=== PATIENT | female | born 1945 | race Caucasian/White ===

== ENCOUNTER 2017-04-19 10:09 | Outpatient (CLI) | payer MEDICARE ==
--- NOTE | 2017-04-20 18:08 | Mammography Report ---
DIGITAL SCREENING MAMMOGRAM: 04/19/2017 CLINICAL INDICATION: A 71-year-old for screening. COMPARISON: 09/2015, 01/2014, 01/2013, 01/2012, 01/2011. TECHNIQUE: Routine CC and MLO projections were obtained of the breasts. FINDINGS: The breasts demonstrate heterogeneously dense fibroglandular parenchyma bilaterally. Coar se, typically benign calcifications are present. There is a shifting pattern of circumscribed nodule s, compatible with waxing and waning cysts. No suspicious masses, clustered microcalcifications, or regions of architectural distortion are identified. IMPRESSION: BENIGN FINDINGS. RECOMMENDATION: Routine annual screening unless otherwise clinically indicated. BI-RADS category 2, benign findings. STANDARD QUALIFYING STATEMENTS 1. This examination was reviewed with the aid of Computer-Aided Detection (CAD). 2. A negative or benign imaging report should not delay biopsy if clinically suspicious findings are present. Consider surgical consultation if warranted. More than 5% of cancers are not identified by i maging. 3. Dense breasts may obscure an underlying neoplasm. JOB #: [id number] EXT JOB #:[id number]
== END 2017-04-19 10:10 | disposition home or self-care (01) ==
LOC: DI.S 10:09
PROVIDERS: ATTEND Nurse Practitioner Family
DX: Z12.31 Encounter for screening mammogram for malignant neoplasm of breast (principal)
CPT/HCPCS: 77067

== ENCOUNTER 2017-06-07 13:29 | Outpatient (CLI) | payer MEDICARE | END 2017-06-07 13:30 | disposition home or self-care (01) | LOC: SC 13:29 | PROVIDERS: ATTEND Nurse Practitioner Family | DX: G47.33 Obstructive sleep apnea (adult) (pediatric) (principal) | CPT/HCPCS: 99214; G0463; 99212 ==

== ENCOUNTER 2017-07-05 12:08 | Outpatient (CLI) | payer MEDICARE ==
--- NOTE | 2017-07-05 15:21 | XRAY Report ---
TWO-VIEW CHEST: 07/05/2017 CLINICAL INDICATION: Dyspnea. FINDINGS: Frontal and lateral views of the chest demonstrate a normal cardiac silhouette. The lungs are clear. No effusion or pneumothorax. There has been no significant interval change from 012. IMPRESSION: NO EVIDENCE OF ACUTE CARDIOPULMONARY DISEASE. JOB #: [id number] EXT JOB #:[id number]
== END 2017-07-05 12:09 | disposition home or self-care (01) ==
LOC: DI.S 12:08
PROVIDERS: ATTEND Registered Nurse
DX: R06.00 Dyspnea, unspecified (principal); R07.89 Other chest pain; R53.83 Other fatigue
CPT/HCPCS: 71020

== ENCOUNTER 2017-08-09 10:39 | Outpatient (CLI) | payer MEDICARE | END 2017-08-09 10:40 | disposition home or self-care (01) | LOC: SC 10:39 | PROVIDERS: ATTEND Nurse Practitioner Family | DX: G47.33 Obstructive sleep apnea (adult) (pediatric) (principal) | CPT/HCPCS: 99214; G0463; 99212 ==

== ENCOUNTER 2017-08-12 13:19 | Outpatient (CLI) | payer MEDICARE ==
--- NOTE | 2017-08-12 15:46 | CARDIAC PROCEDURE NOTE ---
DATE OF SERVICE: 08/12/2017 00:00:00 PRIMARY CARE PHYSICIAN: KAYLI Duong PROCEDURE: Cardiac treadmill stress test. REASON FOR PROCEDURE: Chest pain and dyspnea. CARDIAC RISK FACTORS: Include age, hypertension, former smoker. PREVIOUS CARDIAC PROCEDURES: Include stress test 15 or 20 years ago. CLINICAL HISTORY: A 72-year-old female without known coronary artery disease. INITIAL RESTING VITAL SIGNS: Blood pressure 124/68, heart rate 76, height 61 inches, weight 143 pound s, BMI 26.4. PROCEDURE AND FINDINGS: The patient's identity and date verified. Consent signed. The patient p erformed treadmill exercise using a Dami protocol completing 8 minutes 58 seconds and completing an estimated workload of 10.1 metabolic equivalents. Predicted exercise time was 5 minutes 30 seconds. M aximal blood pressure was 174/66 with a heart rate of 150 beats per minute or 100% of maximum predict ed heart rate for age. The blood pressure response to exercise was within normal limits. The patient stopped because her legs were tiring, and she achieved 100% of predicted heart rate. The resting ECG demonstrated normal sinus rhythm with no abnormality. Maximum ST segment depression was less than 0.5 mm and horizontal. There was a rare PVC. The 1 minute heart rate recovery was within normal limits. FINAL IMPRESSION 1. Negative stress electrocardiogram for ischemia by electrocardiographic criteria. 2. Negative stress test clinically for angina. 3. Rare premature ventricular contraction. 4. [place] [employer] Association functional class I. JOB #: [id number] EXT JOB #:[id number]
[2017-08-12 16:18] VITALS: BP 124/68
== END 2017-08-12 13:20 | disposition home or self-care (01) ==
LOC: DI 13:19
PROVIDERS: ATTEND Registered Nurse
DX: R06.00 Dyspnea, unspecified (principal); R07.89 Other chest pain; I10 Essential (primary) hypertension; Z87.891 Personal history of nicotine dependence
CPT/HCPCS: 93017

== ENCOUNTER 2018-02-22 08:15 | Outpatient (CLI) | payer MEDICARE | END 2018-02-22 08:16 | disposition home or self-care (01) | LOC: DI 08:15 | PROVIDERS: ATTEND Registered Nurse | DX: R06.00 Dyspnea, unspecified (principal) | CPT/HCPCS: 93306; 94060 ==

== ENCOUNTER 2018-02-22 09:11 | Outpatient (CLI) | payer MEDICARE ==
[2018-02-22] MEDS ORDERED: ALBUTEROL NEB 2.5 MG/3 ML INH ONE (11:00)
== END 2018-02-22 09:12 | disposition home or self-care (01) ==
LOC: RT 09:11
PROVIDERS: ATTEND Registered Nurse
DX: R06.00 Dyspnea, unspecified (principal)
CPT/HCPCS: 94060

== ENCOUNTER 2018-07-13 10:45 | Outpatient (CLI) | payer MEDICARE | END 2018-07-13 10:46 | disposition home or self-care (01) | LOC: SC 10:45 | PROVIDERS: ATTEND Nurse Practitioner Family | DX: G47.33 Obstructive sleep apnea (adult) (pediatric) (principal) | CPT/HCPCS: 99214; G0463; 99212 ==

== ENCOUNTER 2019-03-10 17:27 | Outpatient (CLI) | payer MEDICARE | END 2019-03-10 17:28 | disposition short-term general hospital (02) | LOC: EMS 17:27 | PROVIDERS: ATTEND Surgery | DX: R50.9 Fever, unspecified (principal); R10.9 Unspecified abdominal pain; R11.0 Nausea; N39.0 Urinary tract infection, site not specified; Z98.818 Other dental procedure status | CPT/HCPCS: A0425; A0427 ==

== ENCOUNTER 2019-08-22 15:36 | Outpatient (CLI) | payer MEDICARE ==
[2019-08-22 17:29] VITALS: BP 122/70
--- NOTE | 2019-08-22 17:29 | SLEEP CARE CONSULTATION ---
Information from patient questionnaire entered by Savanna Menendez. I have reviewed and concur with the information entered by Savanna Menendez. This document represents the service I personally performed and the decisions made by me, Argelia Esteves, RN, MSN, SATELLITE PROJECT SITE MONITOR. History of Present Illness Previous diagnosis: Mild, Obstructive Sleep Apnea-Hypopnea Syndrome AHI: 6.4 Reason for CPAP/BiPAP follow up: annual Equipment obtained from: [employer] Mask style: Nasal pillows HPI additional information: Patient had interrupted use of CPAP while caring for her significant other the past year as waking to care for him. She became ill and then hospitalized with no use for part of March and April. Then went to use it again after he in May and it would not start. 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 denies: drowsiness while driving Initial [place] Sleepiness Scale score: 9 Current [place] Sleepiness Scale score: 1 Allergies and Home Medications Known drug allergies: No Home medication list reviewed: Yes Allergy and home medication list: Lisinopril 20mg tab one twice daily Aspirin 81mg tab one daily Gabapentin 400mg cap three daily at bedtime Temazepam 15mg daily at bedtime prn Vitamin D 1000IU tab one daily Ventolin HFA 108 ( 90 base) mcg/act Two puffs q4hr prn SOB Qvar 80 mcg/act inhalation aerosol Two puffs twice daily Nasal [place] nasal solution One spray each nostril twice prn B 12 Tab one every other day Spiriva REspirmat 2.5mcg daily Review of Systems Review of systems same as previous: No (hospitalized for kidney infection etc. ) Physical Exam Blood Pressure: 122/70 Cuff size: regular Heart Rate: 72 O2 Saturation: 98 Height: 5 ft 3 in Weight: 141 lb 6.4 oz Body Mass Index: 25.0 BMI Classification: Overweight Impression and Plan 1. Obstructive Sleep Apnea-Hypopnea Syndrome, mild, with fair treatment compliance and good apnea control until machine stopped working. On CPAP therapy, the patient has better sleep quality and is more rested overall. 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 She has no difficulties using the m achine until it stopped working. She brought the machine in and it did not start. I put my power cord to her CPAP and it worked. So I ordered a new power cord which will be faxed. Patient instructed to contact [facility] to discuss process and patient to contact this office if any problems. Patient will restart therapy when power cord replaced on current pressure as no significant change in weight. Patient's BMI showed she is slightly overweight. I reviewed with patient how increase in belly weight can increase health risks. Patient advised to lose some weight. Patient's apnea severity and rationale for treatment to reduce apnea, improve sleep quality and reduce cardiovascular and cerebrovascular events was reviewed. I also reviewed the benefit of consistent device use of CPAP for hypertension, COPD. The goal is to use CPAP with all sleep for maximum benefit of treatment. Restart CPAP at same pressure of 9 cmH2O * New power cord * Use CPAP with all sleep * Notify me if snoring with mask or feeling that the pressure is too much or too little * Attempt to lose some weight * Return for follow up in 2 months, or sooner if concerns arise I spent 100% of this 35 minute visit face to face with the patient with greater than 50% of this was spent time counseling the patient and coordination of care and included downloaded more inclusive compliance report showing past year usage.
== END 2019-08-22 15:37 | disposition home or self-care (01) ==
LOC: SC 15:36
PROVIDERS: ATTEND Nurse Practitioner Family
DX: G47.33 Obstructive sleep apnea (adult) (pediatric) (principal)
CPT/HCPCS: 99214; G0463; 99212

== ENCOUNTER 2019-10-06 10:41 | Outpatient (CLI) | payer MEDICARE ==
--- NOTE | 2019-10-09 08:33 | DEXA Report ---
Reason: OSTEOPOROSIS Procedure Date: 10/06/2019 Accession Number: [id number] / [id number] Procedure: DEX - Dexa Spine and/or Hip CPT Code: Final Report FULL RESULT: EXAM: Dexa Spine and/or Hip DATE: 10/06/2019 11:22 AM CLINICAL HISTORY: OSTEOPOROSIS. The patient is a 74-year-old postmenopausal female. TECHNIQUE: Dual energy x-ray absorptiometry (DXA) was performed on a [employer] System. Regions measured are the AP Spine, femoral neck, and if needed forearm. COMPARISON: None available. In accordance with the International Society for Clinical Densitometry (ISCD) guidelines, data from previous exams may be reanalyzed using current recommendations and techniques. This is done to allow a more accurate basis for comparison with the current study. FINDINGS: The data for the lumbar spine is as follows: BMD (g/cm/cm) T-SCORE Z-SCORE REGION L1 0.912 -1.8 -0.1 L2 1.267 0.6 2.3 L3 1.152 -0.4 1.4 L4 1.088 -0.9 0.8 TOTAL 1.108 -0.6 1.2 NOTE: All evaluable vertebrae are used for classification The data for the hip is as follows: BMD (g/cm/cm) T-SCORE Z-SCORE REGION Neck 0.696 -2.5 -0.5 TOTAL 0.829 -1.4 0.3 NOTE: The femoral neck or total proximal femur, whichever is lowest, is used for classification. IMPRESSION: THE WHO CLASSIFICATION BASED ON THE INTERNATIONAL REFERENCE STANDARD IS OSTEOPOROSIS, REFERENCE HIP / NECK. THE FRACTURE RISK IS CONSIDERED TO BE HIGH. RECOMMENDATION: Patients with diagnosis of osteoporosis or osteopenia should have regular bone mineral density assessment. For those eligible for Medicare, routine testing is allowed once every 2 years. Testing frequency can be increased for patients who have rapidly progressing disease or for those who are receiving medical therapy to restore bone mass. COMMENT: World Health Organization (WHO) definitions for osteoporosis and osteopenia: NORMAL BMD: T-score at -1.0 or higher, fracture risk is low OSTEOPENIA BMD: T-score between -1.0 and -2.5, fracture risk is increased. OSTEOPOROSIS BMD: T-score at -2.5 or lower, fracture risk is high. National Osteoporosis Foundation recommends: 1. Obtain adequate dietary calcium (at least 1200 mg per day) and vitamin D (400-800 international units per day). 2. Participate, as appropriate, in regular weightbearing and muscle-strengthening exercise. 3. Avoid tobacco use and reduce alcohol and caffeine intake. 4. For more detailed information see the website at www.NOF.org.
== END 2019-10-06 10:42 | disposition home or self-care (01) ==
LOC: DI 10:41
PROVIDERS: ATTEND Internal Medicine
DX: Z13.820 Encounter for screening for osteoporosis (principal); M81.0 Age-related osteoporosis without current pathological fracture; Z78.0 Asymptomatic menopausal state
CPT/HCPCS: 77080

== ENCOUNTER 2019-10-12 10:46 | Outpatient (CLI) | payer MEDICARE ==
--- NOTE | 2019-10-12 11:47 | SLEEP CARE CONSULTATION ---
Information from patient questionnaire entered by Afua Wang. I have reviewed and concur with the information entered by Afua Wang. This document represents the service I personally performed and the decisions made by me, Argelia Esteves, RN, MSN, CANAL BOAT OPERATOR. History of Present Illness Previous diagnosis: Mild, Obstructive Sleep Apnea-Hypopnea Syndrome AHI: 6.4 Reason for follow up: other (2 month) Equipment type: CPAP Equipment obtained from: [employer] Mask style: Nasal pillows Mask brand: Resmed Backup mask available: Yes Last cushion change: monthly so a few days ago Prior sleep studies: Yes HPI additional information: Restarted CPAP after getting her power cord replaced and feels going well as feels better overall. CPAP Compliance Data - Data Reviewed with Patient Average duration of nightly device use: 7h 24m Compliance rate %: 73 Current pressure setting (cmH2O): 9 Humidity setting: off Average residual AHI: 0.2 Subjective Patient concerns: reports: other (falling asleep without CPAP after using the bathroom ). denies: aerophagia, mask discomfort, air blowing in eyes, mask leak noise, condensation in mask/hose, nasal congestion (but has sinus congestion and has appointment with new car get ready mechanic ), dry mouth, nose, throat, epistaxis Observed to snore while using device: No Current pressure setting perceived as: comfortable On therapy, patient: reports: sleeping better, awakening more refreshed, being more awake and alert during the day, more rested overall. denies: drowsiness while driving Initial [place] Sleepiness Scale score: 8 Current [place] Sleepiness Scale score: 2 Allergies and Home Medications Known drug allergies: Yes (OTC ?) Home medication list reviewed: Yes Allergy and home medication list: Medication Name (generic/name brand) Strength & Dosage HCTZ-Lisinopril 12.5-20mg tab one twice daily Aspirin 81mg tab one daily Gabapentin 400mg cap three daily at bedtime trazadone 1 tab low dose bedtime Vitamin D 1000IU tab one daily Ventolin HFA 108 ( 90 base) mcg/act Two puffs q4hr prn SOB Qvar 80 mcg/act inhalation aerosol Two puffs twice daily Azelastine HCI 0.1% nasal solution One spray each nostril twice prn Vitamin B Complex Tab one daily vitamin C 1000mg daily Review of Systems Review of systems same as previous: No (hurt shoulder after lifting / has appointment to evaluate) Physical Exam Blood Pressure: 150/70 (in pain shoulder pain - after lifting boxes) Cuff size: long Heart Rate: 68 O2 Saturation: 92 Height: 5 ft 1 in Weight: 145 lb 12.8 oz Body Mass Index: 27.5 BMI Classification: Overweight Impression and Plan 1. Obstructive Sleep Apnea-Hypopnea Syndrome, mild, with good treatment compliance and good apnea control. On CPAP therapy, the patient has better sleep quality and is more rested overall. Patient has been using CPAP well since her power cord was replaced. To reduce falling asleep without CPAP after using the bathroom, she is advised to either keep mask on and unhook hose or take mask off and place on pillow. Patient advised of importance to use CPAP with all sleep for maximum benefit of treatment. She has also gained some weight. Patient advised how continued weight gain can increase her apnea and CPAP pressure. She was advised to lose weight. Patient's apnea severity and rationale for treatmen t to reduce apnea, improve sleep quality and reduce cardiovascular and cerebrovascular events was reviewed. I also reviewed the benefit of consistent device use of CPAP for hypertension, restless leg syndrome. * Continue CPAP pressure at 9 cmH2O * Use CPAP with all sleep * Notify me if snoring with mask or feeling that the pressure is too much or too little * Attempt to lose some weight * Return for follow up in 6 months , or sooner if concerns arise I spent 100% of this 30 minute visit face to face with the patient with greater than 50% of this was spent time counseling the patient and coordination of care.
[2019-10-12 11:48] VITALS: BP 150/70
== END 2019-10-12 10:47 | disposition home or self-care (01) ==
LOC: SC 10:46
PROVIDERS: ATTEND Nurse Practitioner Family
DX: G47.33 Obstructive sleep apnea (adult) (pediatric) (principal)
CPT/HCPCS: 99214; G0463; 99212

== ENCOUNTER 2020-03-13 15:35 | Outpatient (CLI) | payer MEDICARE ==
--- NOTE | 2020-03-13 15:21 | SLEEP CARE CONSULTATION ---
Information from patient questionnaire entered by Afua Wang. I have reviewed and concur with the information entered by Afua Wang. This document represents the service I personally performed and the decisions made by me, Argelia Esteves, RN, MSN, POULTRY CLEANER. History of Present Illness Service Date and Time: 03/13/2020 1500 Previous diagnosis: Mild, Obstructive Sleep Apnea-Hypopnea Syndrome AHI: 6.4 Reason for follow up: six month Equipment type: CPAP Equipment obtained from: [facility] (getting supplies as needed) Mask style: Nasal pillows Backup mask available: Yes (old mask) Last cushion change: a few days ago Type of Sleep Study: Polysomnography CPAP Compliance Data - Data Reviewed with Patient Average duration of nightly device use: 7h 41m Compliance rate %: 88 Current pressure setting (cmH2O): 9 Average residual AHI: 0.2 Subjective Patient concerns: reports: nasal congestion (much less with new allergy medications and inhalers ), dry mouth, nose, throat (occasional dry nose and uses AYR as needed. does not use humidity). denies: aerophagia, mask discomfort, air blowing in eyes, mask leak noise, condensation in mask/hose, epistaxis Observed to snore while using device: No Current pressure setting perceived as: comfortable On therapy, patient: reports: sleeping better, awakening more refreshed, being more awake and alert during the day, more rested overall. denies: drowsiness while driving Initial [place] Sleepiness Scale score: 8 Allergies and Home Medications Home medication list reviewed: No (new mediations for allergies ) Review of Systems Review of systems same as previous: Yes Physical Exam Height: 5 ft 1 in Weight: 145 lb Body Mass Index: 27.3 BMI Classification: Overweight Impression and Plan 1. Obstructive Sleep Apnea-Hypopnea Syndrome, mild, with good treatment compliance and good apnea control. On CPAP therapy, the patient has better sleep quality and is more rested overall. Patient is very pleased with benefit of treatment. She has been sleeping better with CPAP since she started her allergy medications. She was also advised she could use salie nasal spray to clean nose of secretions, wash off allergens and reduce any dryness if needed in addtion to [place]. I reviewed how significant weight change can increase or decrease apnea risks and CPAP pressure. She was advised of symptoms to report for CPAP pressure adjustment. Patient's apnea severity and rationale for treatment to reduce apnea, improve sleep quality and reduce hypertension, cardiovascular and cerebrovascular events was reviewed. * Continue CPAP pressure at 9 cmH20 * Notify me if snoring with mask or feeling that the pressure is too much or too little * Attempt to lose some weight * Call this office if any problems using CPAP * Return for follow up in 1 year , or sooner if concerns arise Visit Type: Telehealth Phone (to reduce risk of Covid 19 exposure) Video Type: [employer] Patient Location: Home Location of Provider: Home Patient agrees and consents to this telehealth visit type: Yes Patient agrees to have their insurance billed: Yes Time Spent with Patient (minutes): 10 Provider Statement: I spent 100% of the Telehealth Phone Call with the patient with greater than 50% spent counseling the patient and coordination of care.
== END 2020-03-13 15:36 | disposition home or self-care (01) ==
LOC: SC 15:35
PROVIDERS: ATTEND Nurse Practitioner Family
DX: G47.33 Obstructive sleep apnea (adult) (pediatric) (principal); E66.3 Overweight; Z68.27 Body mass index [BMI] 27.0-27.9, adult

== ENCOUNTER 2020-06-27 14:15 | Outpatient (CLI) | payer MEDICARE ==
--- NOTE | 2020-06-28 08:09 | Mammography Report ---
BILATERAL DIGITAL SCREENING MAMMOGRAM 3D/2D: 06/27/2020 CLINICAL: Routine screening. Comparison is made to exams dated: 05/29/2019 mammogram, 04/19/2017 mammogram, 09/27/2015 mammogram, mammogram, 02/02/2013 mammogram, and 02/03/2012 mammogram - [facility]. The re are scattered fibroglandular elements in both breasts. There are benign calcifications in both breasts. No significant masses, calcifications, or other findings are seen in either breast. There has been no significant interval change. IMPRESSION: BENIGN There is no mammographic evidence of malignancy. A 1 year screening mammogram is recommended. This exam was interpreted at Station ID: [id number]. NOTE: For mammograms, a report in lay terms will be sent to the patient. Approximately 15% of breast malignancies will not be visualized mammographically. In the management of a palpable breast mass, a negative mammogram must not discourage biopsy of a clinically suspicious lesion. Electronically Signed By: Julieta daniel/juan manuel:06/27/2020 16:27:42 ACR BI-RADS Category 2: Benign Finding(s) 3342F PARENCHYMAL PATTERN: (A) - The breast(s) demonstrate(s) scattered fibroglandular densities. BI-RADS CATEGORY: (2) - 2 RECOMMENDATION: (ANNUAL) - Recommend routine annual screening mammography. [id number] 1 year screening LATERALITY: (B)
== END 2020-06-27 14:16 | disposition home or self-care (01) ==
LOC: DI 14:15
DX: Z12.31 Encounter for screening mammogram for malignant neoplasm of breast (principal)
CPT/HCPCS: 77063; 77067

== ENCOUNTER 2021-04-22 13:47 | Outpatient (CLI) | payer MEDICARE ==
--- NOTE | 2021-04-22 14:31 | SLEEP CARE CONSULTATION ---
Information from patient questionnaire entered by Savanna Nguyen. I have reviewed and concur with the information entered by Savanna Nguyen. This document represents the service I personally performed and the decisions made by , Tara Morton ARNP. History of Present Illness Service Date and Time: 04/22/2021 1347 Previous diagnosis: Mild, Obstructive Sleep Apnea-Hypopnea Syndrome AHI: 6.4 (in 2014) Reason for follow up: annual (last seen 03/2020) Equipment type: CPAP Equipment obtained from: [employer] (getting supplies as needed) Mask style: Nasal pillows Backup mask available: Yes (old mask) Last cushion change: 1 month Prior sleep studies: Yes Year and Where: 2014 - [facility] Type of Sleep Study: Polysomnography HPI additional information: JANNETTE NGUYEN was diagnosed to have mild, AHI 6.4, obstructive sleep apnea- hypopnea syndrome and returned today for CPAP therapy annual follow-up. CPAP Compliance Data - Data Reviewed with Patient Average duration of nightly device use: 5 hr 37 min Compliance rate %: 68 (180 days)(72 last 30 days) Current pressure setting (cmH2O): 9 Humidity settin Average residual AHI: 0.2 Subjective Missed days of use due to: reports: other Patient concerns: denies: aerophagia, mask discomfort, air blowing in eyes, mask leak noise, condensation in mask/hose, nasal congestion, dry mouth, nose, throat, epistaxis, other Observed to snore while using device: No Current pressure setting perceived as: comfortable On therapy, patient: reports: sleeping better, awakening more refreshed, being more awake and alert during the day, more rested overall. denies: drowsiness while driving Initial [place] Sleepiness Scale score: 8 (in 2014) Current [place] Sleepiness Scale score: 0 Allergies and Home Medications Home medication list reviewed: Yes (no new meds) Review of Systems Review of systems same as previous: Yes (no changes) Physical Exam Heart Rate: 76 O2 Saturation: 98 Height: 5 ft 1 in Weight: 148 lb Body Mass Index: 27.9 BMI Classification: Overweight Impression and Plan 1. Obstructive Sleep Apnea-Hypopnea Syndrome, mild, with good treatment compliance and good apnea control. On CPAP therapy, the patient has better sleep quality and is more rested overall. Patient is satisfied with her treatment and is trying to add more hours to the time she spends with the mask on. She has reached good compliance today but I encouraged her to continue to use the CPAP with all sleep. Compliance guidelines reviewed for insurance coverage. Patient was counseled on the difference between meeting compliance and optimal use of CPAP. Optimal use of CPAP is use of CPAP with all sleep to obtain maximum benefit of treatment. Patient is encouraged to use CPAP with all sleep. Patient also encouraged to try to lose weight. Patient's apnea severity and rationale for treatment to reduce apnea, improve sleep quality and reduce cardiovascular and cerebrovascular events was reviewed. I also reviewed the benefit of consistent device use of CPAP for hypertension. * Continue auto CPAP pressure at 9 cmH2O * Notify me if snoring with mask or feeling that the pressure is too much or too little * Attempt to lose weight * Call this office if any problems using CPAP * Return for follow up in 1 year, or sooner if concerns arise Counseling Topics: Spare mask, Weight loss health impact Visit Type: In Office Time Spent with Patient (minutes): 18 Provider Statement: I spent 100% of the Face to Face Visit with the patient with greater than 50% spent counseling the patient and coordination of care.
== END 2021-04-22 13:48 | disposition home or self-care (01) ==
LOC: SC 13:47
PROVIDERS: ATTEND Nurse Practitioner Family
DX: G47.33 Obstructive sleep apnea (adult) (pediatric) (principal); E66.3 Overweight; Z68.27 Body mass index [BMI] 27.0-27.9, adult
CPT/HCPCS: 99212; G0463

== ENCOUNTER 2021-05-01 08:00 | Outpatient (CLI) | payer MEDICARE ==
[2021-05-01 16:20] LABS: BILIRUBIN,URINE NEGATIVE (NEGATIVE); GLUCOSE, URINE (UA) NEGATIVE (NEGATIVE); KETONES,URINE (UA) NEGATIVE (NEGATIVE); LEUKOCYTE ESTERASE, URINE LARGE (NEGATIVE); NITRITE,URINE NEGATIVE (NEGATIVE); OCCULT BLOOD,URINE TRACE-INTA (NEGATIVE); PH,URINE 6.5 PH (5.0-7.5); PROTEIN,URINE NEGATIVE (NEGATIVE); UROBILINOGEN,URINE 0.2 (NORMAL) E.U./dL (NORMAL)
[2021-05-01 16:22] LABS: CLARITY,URINE HAZY (CLEAR)
[2021-05-01 16:45] LABS: BACTERIA,URINE Few /HPF (None Seen); RBC,URINE 0-5 /HPF (0-5); SQUAMOUS EPITHELIAL CELL,UR FEW Squamous (<= Few); WBC,URINE >25 /HPF (0-5)
== END 2021-05-01 23:59 | disposition home or self-care (01) ==
LOC: LAB.S 08:00
PROVIDERS: ATTEND Emergency Medicine
DX: R30.0 Dysuria (principal)
CPT/HCPCS: 81001; 87086; 87181

== ENCOUNTER 2021-05-16 09:17 | Outpatient (CLI) | payer MEDICARE ==
[2021-05-16 14:45] LABS: BILIRUBIN,URINE NEGATIVE (NEGATIVE); GLUCOSE, URINE (UA) NEGATIVE (NEGATIVE); KETONES,URINE (UA) NEGATIVE (NEGATIVE); LEUKOCYTE ESTERASE, URINE NEGATIVE (NEGATIVE); NITRITE,URINE NEGATIVE (NEGATIVE); OCCULT BLOOD,URINE NEGATIVE (NEGATIVE); PH,URINE 7.5 PH (5.0-7.5); PROTEIN,URINE NEGATIVE (NEGATIVE); UROBILINOGEN,URINE 0.2 (NORMAL) E.U./dL (NORMAL)
[2021-05-16 14:58] LABS: CLARITY,URINE CLEAR (CLEAR)
[2021-05-16 14:59] LABS: BACTERIA,URINE Rare /HPF (None Seen); RBC,URINE None Seen /HPF (0-5); SQUAMOUS EPITHELIAL CELL,UR NONE SEEN (<= Few); WBC,URINE 0-3 /HPF (0-5)
== END 2021-05-16 09:18 | disposition home or self-care (01) ==
LOC: LAB.S 09:17
PROVIDERS: ATTEND Emergency Medicine
DX: R30.0 Dysuria (principal)
CPT/HCPCS: 81001; 87086

== ENCOUNTER 2021-05-29 08:00 | Outpatient (CLI) | payer MEDICARE ==
[2021-05-29 20:01] LABS: BILIRUBIN,URINE NEGATIVE (NEGATIVE); GLUCOSE, URINE (UA) NEGATIVE (NEGATIVE); KETONES,URINE (UA) TRACE mg/dL (NEGATIVE); LEUKOCYTE ESTERASE, URINE MODERATE (NEGATIVE); NITRITE,URINE POSITIVE (NEGATIVE); OCCULT BLOOD,URINE NEGATIVE (NEGATIVE); PH,URINE 5.5 PH (5.0-7.5); PROTEIN,URINE NEGATIVE (NEGATIVE); UROBILINOGEN,URINE 0.2 (NORMAL) E.U./dL (NORMAL)
[2021-05-29 20:09] LABS: CLARITY,URINE CLEAR (CLEAR); RBC,URINE 0-5 /HPF (0-5); SQUAMOUS EPITHELIAL CELL,UR FEW Squamous (<= Few); WBC,URINE >25 /HPF (0-5)
[2021-05-29 20:10] LABS: BACTERIA,URINE Few /HPF (None Seen); MUCUS,URINE Few Strands
== END 2021-05-29 23:59 | disposition home or self-care (01) ==
LOC: LAB.S 08:00
PROVIDERS: ATTEND Emergency Medicine
DX: R30.0 Dysuria (principal)
CPT/HCPCS: 81001; 87086; 87181

== ENCOUNTER 2022-07-07 12:59 | Outpatient (CLI) | payer MEDICARE ==
[2022-07-07 13:35] VITALS: BP 119/77
--- NOTE | 2022-07-07 13:35 | SLEEP CARE CONSULTATION ---
Information from patient questionnaire entered by Azalia Daniel MA. I have reviewed and concur with the information entered by Azalia Daniel MA. This document represents the service I personally performed and the decisions made by , Tara Morton ARNP. History of Present Illness Service Date and Time: 07/07/2022 1259 Previous diagnosis: Mild, Obstructive Sleep Apnea-Hypopnea Syndrome AHI: 6.4 (in 2014) Reason for follow up: annual (last seen 04/2021, Resmed, rowe 04/26/2016, new rx? ) Equipment type: CPAP Equipment obtained from: [employer] (getting supplies as needed) Mask style: Nasal pillows Backup mask available: No (will keep old mask when replaced) Last cushion change: 4 weeks Prior sleep studies: Yes Year and Where: 2014 - [facility] Type of Sleep Study: Polysomnography HPI additional information: JANNETTE NGUYEN was diagnosed to have mild, AHI 6.4, obstructive sleep apnea- hypopnea syndrome and returned today for CPAP therapy annual follow-up. Sleep Study - Results Type of Sleep Study: Polysomnography Prior sleep studies: Yes Year and Where: 2014 - [facility] CPAP Compliance Data - Data Reviewed with Patient Average duration of nightly device use: 6 HOURS 1 MINUTES Compliance rate %: 78 Current pressure setting (cmH2O): 9 Average residual AHI: 0.1 Central apnea: .0 Obstructive apnea: .1 Hypopnea: .0 Average large leak: .9 Subjective Missed days of use due to: reports: other (forget to put mask back on after bathroom) Patient concerns: denies: aerophagia, mask discomfort, air blowing in eyes, mask leak noise, condensation in mask/hose, nasal congestion, dry mouth, nose, throat, epistaxis, other Observed to snore while using device: No Current pressure setting perceived as: comfortable On therapy, patient: reports: sleeping better, awakening more refreshed, being more awake and alert during the day, more rested overall. denies: drowsiness while driving Initial [place] Sleepiness Scale score: 8 (in 2014) Current [place] Sleepiness Scale score: 0 (07/07/2022) Allergies and Home Medications Known drug allergies: No (NKA) Drug allergies reviewed: Yes Home medication list reviewed: Yes (Ropinirole; Duloxetine 20 mg) Allergy and home medication list: NKA VERIFIED BY PADMINI LIZARRAGA 07/07/2022 1300 Review of Systems Review of systems same as previous: No (Restless legs and neuropathy) Physical Exam Vital signs obtained and entered by: PADMINI LIZARRAGA, Blood Pressure: 119/77 (R 22, P 60, RIGHT) Cuff size: wrist Heart Rate: 61 O2 Saturation: 98 (N94) Height: 5 ft 1 in Weight: 130 lb (CLOTHES) Body Mass Index: 24.5 BMI Classification: Healthy weight Impression and Plan 1. Obstructive Sleep Apnea-Hypopnea Syndrome, mild, with good treatment compliance and good apnea control. On CPAP therapy, the patient has better sleep quality and is more rested overall. Patient has a ResMed Airsense 10 that she received in 2014. We can only obtain information to February 2022. The patients CPAP is over 5 years old and of reasonable use. Thus, the CPAP will be updated. Patient has significant improvement of her sleep apnea and is happy with current CPAP therapy. Patient denies problems with oral dryness, nasal congestion, epistaxis, skin irritation or aerophagia. A DWO prescription will be made. Compliance guidelines for new device and follow up discussed. Patient's apnea severity and rationale for treatment to reduce apnea, improve sleep quality and reduce cardiovascular and cerebrovascular events was reviewed. I also reviewed the benefit of consistent device use of CPAP for hypertension. * Continue CPAP pressure at 9 cmH2O * Update machine * Update supplies * Notify me if snoring with mask or feeling that the pressure is too much or too little * Call this office if any problems using CPAP * Return for follow up one month after obtaining new device, or sooner if concerns arise Counseling Topics: Spare mask, Weight control Visit Type: In Office Time Spent with Patient (minutes): 22 Provider Statement: I spent 100% of the Face to Face Visit with the patient with greater than 50% spent counseling the patient and coordination of care.
== END 2022-07-07 13:00 | disposition home or self-care (01) ==
LOC: SC 12:59
PROVIDERS: ATTEND Nurse Practitioner Family
DX: G47.33 Obstructive sleep apnea (adult) (pediatric) (principal)
CPT/HCPCS: 99213; G0463; 99212

== ENCOUNTER 2023-01-11 08:52 | Outpatient (CLI) | payer MEDICARE ==
--- NOTE | 2023-01-12 10:00 | Mammography Report ---
BILATERAL DIGITAL SCREENING MAMMOGRAM 3D/2D: 01/11/2023 CLINICAL: Routine screening. Comparison is made to exams dated: 06/27/2020 mammogram, 05/29/2019 mammogram, and 04/19/2017 mammogram - [facility]. There are scattered areas of fibroglandular density in both breasts (category b / 25%-50% glandular t issue). There are benign calcifications in both breasts. No significant masses, calcifications, or other findings are seen in either breast. There has been no significant interval change. IMPRESSION: BENIGN There is no mammographic evidence of malignancy. A 1 year screening mammogram is recommended. Based on the Tyrer Cuzick model (a risk assessment model) the patients lifetime risk is 1.4% and her 10 year risk is 0.0%. According to the ACR, ACS, and NCCN guidelines, an annual breast MRI exam brandi g with mammogram is recommended if the patients lifetime risk is 20% or greater. This exam was interpreted at Station ID: [id number]. NOTE: For mammograms, a report in lay terms will be sent to the patient. Approximately 15% of breast malignancies will not be visualized mammographically. In the management of a palpable breast mass, a negative mammogram must not discourage biopsy of a clinically suspicious lesion. Electronically Signed By: Quirino doyle/juan manuel:01/11/2023 17:21:52 letter sent: No_Letter ACR BI-RADS Category 2: Benign Finding(s) 3342F PARENCHYMAL PATTERN: (A) - The breast(s) demonstrate(s) scattered fibroglandular densities. BI-RADS CATEGORY: (2) - 2 Mammogram [id number] 1 year screening LATERALITY: (B)
== END 2023-01-11 08:53 | disposition home or self-care (01) ==
LOC: DI.S 08:52
PROVIDERS: ATTEND Registered Nurse
DX: Z12.31 Encounter for screening mammogram for malignant neoplasm of breast (principal)

== ENCOUNTER 2023-04-02 12:32 | Outpatient (CLI) | payer MEDICARE ==
--- NOTE | 2023-04-02 14:55 | DEXA Report ---
PROCEDURE: Dexa Spine and/or Hip INDICATIONS: OSTEOPOROSIS TECHNIQUE: Dual energy x-ray absorptiometry (DXA) was performed on a [employer] System. Regions measur ed are the AP Spine, femoral neck, and if needed forearm. COMPARISON: 10/06/2019 FINDINGS: Lumbar Spine: L2 excluded due to increased density Bone Mineral Density 1.228 g/cm/cm,T score 0.5. Since the most recent prior study, there has been a statistically significant increase in bone mineral density by XXX percent. Left Femoral Neck: Bone Mineral Density 0.767 g/cm/cm, T score -2.0. Left Hip: Bone Mineral Density 0.858 g/cm/cm,T score -2.1. There has been no statistically significant change i n bone mineral density since the prior study. (T score greater or equal to -1.0: NORMAL) (T score from -1.1 to -2.4: OSTEOPENIA) (T score less than or equal to -2.5 to: OSTEOPOROSIS) Impression: By WHO criteria, this patient has low bone density (osteopenia). Interval statistical increase in bone minteral density of the lumbar spine. No statistical interval c hange in bone minteral density of the hip. Patients with diagnosis of osteoporosis or osteopenia should have regular bone mineral density assess ment. For those eligible for Medicare, routine testing is allowed once every 2 years. Testing frequ ency can be increased for patients who have rapidly progressing disease or for those who are receivin g medical therapy to restore bone mass. Reviewed by: Price Ho on 04/02/2023 1:53 PM MARLEEN Approved by: Price Ho on 04/02/2023 1:53 PM MARLEEN Station ID: [id number]
== END 2023-04-02 12:33 | disposition home or self-care (01) ==
LOC: DI 12:32
PROVIDERS: ATTEND Registered Nurse
DX: M85.89 Other specified disorders of bone density and structure, multiple sites (principal)

== ENCOUNTER 2023-08-12 10:26 | Outpatient (CLI) | payer MEDICARE ==
--- NOTE | 2023-08-12 16:11 | XRAY Report ---
PROCEDURE: Knee 3 View LT INDICATIONS: PAIN IN LEFT LOWER LIMB TECHNIQUE: 3 views of the left knee were acquired. COMPARISON: None. FINDINGS: Bones: No acute fractures or dislocations. No suspicious bony lesions. Mild joint space narrowing of the medial and lateral femorotibial compartments. Soft tissues: No knee joint effusion. No suspicious soft tissue calcifications or masses. IMPRESSION: Mild osteoarthrosis. No acute osseous abnormality. If symptoms persist or there is continued clinical concern, further evaluation with MRI or CT may be helpful. Reviewed by: Lars Ruiz MD on 08/12/2023 4:10 PM PDT Approved by: Lars Ruiz MD on 08/12/2023 4:10 PM PDT Station ID: [id number]
== END 2023-08-12 10:27 | disposition home or self-care (01) ==
LOC: DI.S 10:26
PROVIDERS: ATTEND Registered Nurse
DX: M17.12 Unilateral primary osteoarthritis, left knee (principal)

== ENCOUNTER 2023-11-10 10:00 | Outpatient (CLI) | payer MEDICARE ==
--- NOTE | 2023-11-10 10:22 | Sleep Patient Instructions ---
Sleep Center Visit Summary - Patient Visit Information Reason for Visit: Annual visit for PAP therapy - Patient Instructions Additional Instructions: You will continue with CPAP therapy with pressure set at 9 cmH2O. A supply prescription will be updated with your DME. We encourage you to continue to try to lose weight. Please follow up with the sleep care office in 1 year. - Clinic Information Contact: [facility] [address] [place] [address] [email or web address] T: [phone]
--- NOTE | 2023-11-10 10:24 | SLEEP CARE CONSULTATION ---
Information from patient questionnaire entered by Savannah Stokes. I have reviewed and concur with the information entered by Savannah Stokes. This document represents the service I personally performed and the decisions made by , Tara Morton ARNP. History of Present Illness Service Date and Time: 11/10/2023 1000 Previous diagnosis: Mild, Obstructive Sleep Apnea-Hypopnea Syndrome AHI: 6.4 (in 2014) Reason for follow up: annual (LAST SEEN 10/2022) Equipment type: CPAP (RESMED Airsense 10, SD card only) Equipment obtained from: [employer] (getting supplies as needed) Mask style: Nasal pillows Backup mask available: Yes (old mask) Last cushion change: 1 week [facility]: Yes [facility] Type of Sleep Study: Polysomnography HPI additional information: JANNETTE NGUYEN was diagnosed to have mild, AHI 6.4, obstructive sleep apnea- hypopnea syndrome and returned today for CPAP therapy annual follow-up. Sleep Study - Results Type of Sleep Study: Polysomnography [facility] Yes [facility] Compliance Data - Data Reviewed with Patient Average duration of nightly device use: 5 hours 21 minutes Compliance rate %: 70 (342/365 days used) Current pressure setting (cmH2O): 9 Average residual AHI: 0.3 Average large leak: 4.1 L/min Subjective Missed days of use due to: reports: other (has RLS that keeps her from sleeping/staying in bed) Patient concerns: reports: mask discomfort. denies: aerophagia, air blowing in eyes, mask leak noise, condensation in mask/hose, nasal congestion, dry mouth, nose, throat, epistaxis Observed to snore while using device: No Current pressure setting perceived as: comfortable On therapy, patient: reports: sleeping better, awakening more refreshed, being more awake and alert during the day, more rested overall. denies: drowsiness while driving Initial [place] Sleepiness Scale score: 8 (in 2014) Current [place] Sleepiness Scale score: 1 (11/10/23) Allergies and Home Medications Known drug allergies: No Drug allergies reviewed: Yes Home medication list reviewed: Yes (cutting back on Ropinirole to 2 tabs) Allergy and home medication list: Allergies No Known Drug Allergies Allergy (Verified 11/09/23 09:45) Review of Systems Review of systems same as previous: Yes (NO CHANGE) Physical Exam Vital signs obtained and entered by: SAVANNAH Cervantes MA Blood Pressure: 155/79 (RIGHT ARM) Cuff size: regular Heart Rate: 70 O2 Saturation: 96 Height: 5 ft 1 in Weight: 145 lb 9.6 oz Body Mass Index: 27.5 BMI Classification: Overweight Impression and Plan 1. Obstructive Sleep Apnea-Hypopnea Syndrome, mild, with good treatment compliance and good apnea control. On CPAP therapy, the patient has better sleep quality and is more rested overall. Patient has significant improvement of their sleep apnea and is satisfied with current CPAP therapy. Patient has a little mask discomfort but otherwise feels there is no problems with her CPAP or mask. Patient's apnea severity and rationale for treatment to reduce apnea, improve sleep quality and reduce cardiovascular and cerebrovascular events was reviewed. I also reviewed the benefit of consistent device use of CPAP for hypertension and RLS. 2. Overweight, unspecified. Currently patients BMI is 27.5. Obesity increases the risk of apnea, CPAP pressure requirements and overall health risks especially cardiovascular and diabetes. Thus patient is advised to lose weight. * Continue auto CPAP pressure at 9 cmH2O * Update supply prescription * Notify me if snoring with mask or feeling that the pressure is too much or too little * Attempt to lose weight * Call this office if any problems using CPAP * Return for follow up in 12 months, or sooner if concerns arise Counseling Topics: Spare mask, Weight loss health impact Prescriptions: Device supplies Follow up with Sleep Care in: 1 year Visit Type: In Office Time Spent with Patient (minutes): 21 Provider Statement: I spent 100% of the Face to Face Visit with the patient with greater than 50% spent counseling the patient and coordination of care.
[2023-11-10 10:33] VITALS: BP 155/79; O2SAT 96
== END 2023-11-10 10:01 | disposition home or self-care (01) ==
LOC: SC 10:00
PROVIDERS: ATTEND Nurse Practitioner Family
DX: G47.33 Obstructive sleep apnea (adult) (pediatric) (principal); E66.3 Overweight; Z68.27 Body mass index [BMI] 27.0-27.9, adult
CPT/HCPCS: 99213; G0463; 99212

== ENCOUNTER 2024-05-22 13:06 | Outpatient (CLI) | payer MEDICARE ==
--- NOTE | 2024-05-22 17:30 | XRAY Report ---
PROCEDURE: Lumbar Spine 2-3V INDICATIONS: LOW BACK PAIN TECHNIQUE: 3 views of the lumbar spine were acquired. COMPARISON: None. FINDINGS: Surgical change: None. Bones: 5 [id number] vertebrae are present. Mild levoscoliosis with apex at L2. Trace retrolisth esis L1 on 2. Grade 1 anterolisthesis L4-5 and trace retrolisthesis L5-S1. Moderate disc height loss at all levels. No vertebral body compression fractures. No suspicious bony lesions. Soft tissues: Overlying bowel gas pattern is normal. No suspicious soft tissue calcifications. Ath erosclerotic calcification of the abdominal aorta. IMPRESSION: Multilevel spondylosis and spondylolisthesis. Spondylolisthesis is most severe at L4-5. Reviewed by: Fatmata Duffy MD on 05/22/2024 5:29 PM PDT Approved by: Fatmata Duffy MD on 05/22/2024 5:29 PM PDT Station ID: [id number]
== END 2024-05-22 13:07 | disposition home or self-care (01) ==
LOC: DI.S 13:06
PROVIDERS: ATTEND Registered Nurse
DX: M47.816 Spondylosis without myelopathy or radiculopathy, lumbar region (principal); M43.16 Spondylolisthesis, lumbar region; M43.17 Spondylolisthesis, lumbosacral region